=== PATIENT | male | born 1995 | race Caucasian/White ===

== ENCOUNTER → 2022-01-27 | Outpatient (CLI) | payer OTHER ==
[~2022-01-27] VITALS: Ht 182.9 cm; Wt 99.2 kg
[2022-01-27 15:45] VITALS: BP 131/66
== END ==
LOC: RAD 13:03 → AMSURD 13:03
DX: S62.639B Displaced fracture of distal phalanx of unspecified finger, initial encounter for open fracture (principal)
CPT/HCPCS: J0690; J1580